=== PATIENT | female | born 1955 | race Caucasian/White ===

== ENCOUNTER → 2017-05-05 | Outpatient (CLI) | payer OTHER ==
[~2017-05-05] MED LIST: ZOLOFT 25MG25 MG PO
== END ==
LOC: MC.RAD 09:35
DX: Z12.31 Encounter for screening mammogram for malignant neoplasm of breast (principal)

== ENCOUNTER → 2019-05-14 | Outpatient (CLI) | payer OTHER | LOC: MC.RAD 13:48 | DX: Z12.31 Encounter for screening mammogram for malignant neoplasm of breast (principal) ==

== ENCOUNTER → 2019-11-22 | Outpatient (CLI) | payer OTHER | LOC: ZCOL.LAB 19:38 | DX: R50.9 Fever, unspecified (principal); Z20.828 Contact with and (suspected) exposure to other viral communicable diseases ==

== ENCOUNTER → 2021-03-02 | Outpatient (CLI) | payer MEDICARE | LOC: MC.RAD 09:05 | DX: Z12.31 Encounter for screening mammogram for malignant neoplasm of breast (principal) ==

== ENCOUNTER → 2021-11-29 | Outpatient (CLI) | payer MEDICARE | LOC: COL.RAD 06:57 | DX: C18.1 Malignant neoplasm of appendix (principal); N20.0 Calculus of kidney | CPT/HCPCS: Q9967 ==

== ENCOUNTER → 2022-03-05 | Outpatient (CLI) | payer MEDICARE | LOC: MC.RAD 10:30 | DX: Z12.31 Encounter for screening mammogram for malignant neoplasm of breast (principal) ==

== ENCOUNTER → 2023-03-17 | Outpatient (CLI) | payer MEDICARE ==
[2006-03-14 09:30] VITALS: BP 138/73; PULSE 48; TEMP 97
== END ==
LOC: MC.RAD 14:18
DX: Z12.31 Encounter for screening mammogram for malignant neoplasm of breast (principal)